=== PATIENT | male | born 1945 | race Caucasian/White ===

== ENCOUNTER 2020-10-30 21:24 | Inpatient (IN) | payer OTHER, MEDICARE, SELFPAY ==
[2020-10-30 21:25] VITALS: BP 106/41; PULSE 57; RESP 18; TEMP 35.8; O2SAT 98; BMI 34.7
--- NOTE | 2020-10-30 21:40 | EKG12_ITS ---
Test Reason : WEAKNESS Blood Pressure : / mmHG Vent. Rate : 055 BPM Atrial Rate : 055 BPM P-R Int : 154 ms QRS Dur : 152 ms QT Int : 512 ms P-R-T Axes : 000 -59 048 degrees QTc Int : 489 ms Sinus bradycardia vs ectopic atrial rhythm Right bundle branch block Left anterior fascicular block Bifascicular block Septal infarct , age undetermined , cannot be excluded Abnormal ECG Confirmed by HAYLEY CHIN, SHERRY ([id number]), loan expeditor THAI CROWE ([id number]) on 10/31/2020 12:56:18 PM Referred By: DEYA Confirmed By:SHERRY HARDY MD
--- NOTE | 2020-10-30 21:40 | CT_ITS ---
STUDY: CT BRAIN WITHOUT CONTRAST REASON FOR EXAM: Male, 75 years old. ams RADIATION DOSAGE (If Supplied By Facility): CTDIvol = ( 44.99 ) mGy, DLP = ( 829.85 ) mGycm TECHNIQUE: Transaxial CT imaging of the brain was performed without administration of intravenous contrast material. Individualized dose optimization techniques were used for this CT. COMPARISON: No relevant priors. FINDINGS: Normal soft tissue structures. Smooth rounded defect of the left parietal bone consistent with gerri hole. This is fat filled with no soft tissue mass. There is mild cerebral atrophy with widening of the extra-axial spaces and ventricular dilatation. There are areas of decreased attenuation within the white matter tracts of the supratentorial brain, consistent with microvascular disease changes. Normal basal ganglia and thalami. Normal brainstem. Normal cerebellum. There is no intracranial hemorrhage. There are no findings of an acute ischemic infarction. Normal visualized paranasal sinuses. CT/Brain/Head without Contrast IMPRESSION: No acute intracranial findings. Negative for hemorrhage, hematoma or extra-axial fluid collection. Negative for demarcation of a new nonhemorrhagic infarct zone. Negative for mass density. 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 Electronically Signed: Kaylin Farrell MD at 22:15 EDT , Service support ,
[2020-10-30 21:50] LABS: Absolute Lymphocyte Count 0.56 X10^3/uL (0.83-4.51); Absolute Neutrophil Count 6.1 X10^3/uL (2.0-7.7); Basophil# 0.03 X10^3/uL; Basophil% 0.4 % (0-1); Eosinophil# 0.09 X10^3/uL; Eosinophils% 1.2 % (0-5); Hematocrit 40.7 % (40-54); Hemoglobin 13.4 g/dL (13.0-16.5); Lymphocyte # 0.56 X10^3/ul (4.0); Lymphocyte % 7.2 % (19-41); Mean Corp Hgb Conc 32.9 g/dL (32-36); Mean Corpuscular Hgb 31.5 pg (27.0-32.0); Mean Corpuscular Volume 95.8 fL (80-94); Mean Platelet Vol. 10.5 fl (6.2-12.0); Monocyte# 0.93 X10^3/uL; Monocyte% 11.9 % (0-10); NRBC Flagged by Analyzer 0 % (0-5); Neutrophil # 6.12 X10^3/uL (2.7-7.7); Neutrophil % 78.4 % (47-70); POSITIVE DIFFERENTIAL YES; Platelet Count 168 K/mm3 (150-450); RBC Distribution Width SD 55.7 fl (35.1-43.9); Red Blood Count 4.25 M/mm3 (4.6-6.2); White Blood Count 7.8 K/mm3 (4.4-11.0)
[2020-10-30 21:51] LABS: Differential Indicated SCAN CRITERIA MET
[2020-10-30 22:00] LABS: International Normalized Ratio 1.3; Prothrombin Time (Protime)PT. 15.4 SECONDS (11.7-14.9)
--- NOTE | 2020-10-30 22:00 | RAD_ITS ---
STUDY: X-RAY CHEST REASON FOR EXAM: Male, 75 years old. ams TECHNIQUE: 1 view COMPARISON: None. FINDINGS: The lungs are clear and expanded. There is no demonstrated pleural abnormality. Normal size heart. Normal mediastinum and justus. Normal visualized pulmonary arteries. There is atherosclerotic calcification of the aortic arch . There are diffuse degenerative changes of the visualized thoracic spine. Normal visualized ribs, clavicles, and shoulders. There is no demonstrated abnormality of the visualized soft tissue structures of the upper abdomen. RAD/Chest 1 View (Portable) IMPRESSION: No acute cardiopulmonary findings. Negative for consolidation, atelectasis or other infiltrates. Normal cardiac size without pulmonary venous congestion or pleural effusion. Moderate atherosclerotic changes of the aorta. Electronically Signed: Kaylin Farrell MD at 22:16 EDT , Service support ,
[2020-10-30 22:01] LABS: Partial Thromboplast Time 29.8 Seconds (24.1-36.2)
[2020-10-30 22:10] LABS: Alcohol, Blood (Medical)-Serum < 3.0 mg/dL
[2020-10-30 22:17] LABS: ALB/GLOB Ratio 0.6 RATIO (0.9-2.4); AST(SGOT) 110 U/L (15-37); Alanine Aminotransfer ALT/SGPT 17 U/L (16-61); Albumin, Serum 2.6 g/dL (3.2-5.0); Alkaline Phosphatase 320 U/L (45-117); Anion Gap 10 (5-15); BUN 51 mg/dL (7-18); BUN/Creat Ratio 19.8 RATIO (10-20); Calcium,Total 9.6 mg/dL (8.5-10.1); Chloride 99 mmol/L (98-107); Creatinine, Serum 2.58 mg/dL (0.70-1.30); EST Glomerular Filtration Rate 26 mL/min (>60); Est Glom Filt Rate - Afr Amer 32 mL/min (>60); Estimated Creatinine Clearance 26.33 ml/min; Globulin 4.6 g/dL (2.2-4.2); Glucose 124 mg/dL (74-106); Potassium 4.2 mmol/L (3.5-5.1); Protein, Total 7.2 g/dL (6.4-8.2); Sodium Level 133 mmol/L (136-145)
[2020-10-30 22:22] LABS: Color, Urine Yellow (Yellow); Glucose, Dipstick Normal (Normal); Ketone-Dipstick Negative (Negative); Leukocyte Esterase-Dipstick Negative /ul (Negative); Nitrite-Dipstick Negative (Negative); Occult Blood-Urine Negative /ul (Negative); Protein-Dipstick Negative (Negative); Specific Gravity, Urine 1.015 (1.002-1.030); Urine Bilirubin Dipstick 1 mg/dL (Negative); Urine Clarity Clear (Clear); Urine Urobilinogen 4 mg/dl (Normal)
[2020-10-30 22:41] LABS: Differential Comment SCANNED
--- NOTE | 2020-10-30 22:52 | ED.DCSUM_ITS ---
- ER Visit Summary Date of Service: 10/30/20 Chief Complaint: Weakness History of Present Illness: The patient is a 75 M with a history of liver cancer, chemotherapy beads, ascites, paracentesis. He had outpatient labs recently that showed abnormal kidney function and elevated ammonia. He was asked to hold his water pills and start lactulose. He is currently using a walker at home and is expected to have a wheelchair and Rollator delivered tomorrow. He is having increasing trouble walking and he is falling frequently. He has not had any injuries. Physical Examination: Afebrile and vital signs unremarkable. Alert to person and place. No acute distress. Scleral icterus and jaundice noted. Heart regular rhythm. Lungs clear. Abdomen is distended with fluid wave. No guarding or rebound. Lower extremities slightly pale and mildly cyanotic, but pulses are strong. Bilateral edema noted, symmetric, nontender. Test Results: EKG showed sinus rhythm at a rate of 55 with a right bundle and left anterior fascicular block. Troponin normal. CBC unremarkable. BUN 51, creatinine 2.58. Total bilirubin 4.3, alkaline phosphatase 320, ALT 17, AST 110, INR 1.3, ammonia 80. Alcohol negative. Chest x-ray showed chronic changes, interpreted by the radiologist and myself. CT brain showed no acute process, chronic and postoperative changes noted. Emergency Department Course and Treatment: Patient has liver cancer with cirrhosis and ascites. It sounds like his kidney function is deteriorating. I am concerned for hepatorenal syndrome. He also has an elevated ammonia. These are contributing to his falls. He is unsafe at home. He does not have home health arranged yet. He cannot use his walker. He is requesting transfer to the [place]. We contacted them upon patient arrival to the ED and have not heard back. I was told by nursing that we left a message and they are not calling back. I spoke with the patient and his who would be agreeable to admission here. He was treated with lactulose. Hospitalist was consulted. Spoke with the patient and his about potential placement. It sounds like they would be okay with rehab or a transitional care unit. They had not previously discus sed long-term placement, but I did notify him that it may be appropriate. Treatment Plan: As above Disposition: [facility] admission Impression: Hepatic encephalopathy, acute kidney injury, liver cancer This note was generated with Dragon dictation software. It may contain incorrect words, spelling, and punctuation that were not noted in review of the chart prior to signing ED Disposition - Plan for ED Patient: Referrals: Miguel Ángel Sandoval MD [Primary Care Provider] -
--- NOTE | 2020-10-30 22:59 | PCM.HP.STD ---
Problem List (1) Liver cirrhosis Status: Acute (2) Liver cancer Status: Acute (3) Hepatorenal syndrome Status: Acute History of Present Illness Date of Admission: 10/30/20 Chief Complaint: Multiple falls The patient is a 75 year old M with a significant history of liver cirrhosis; liver cancer; and hyperlipidemia who presents emergency department with multiple falls going on for about the last month. On the day of presentation patient fell. His brother could not help getting up from the floor. Patient has been using a cane to walk but that has not been helpful. Family is seeking that patient gets rehabilitation. Also patient report that patient has been severely confused. On the day of presentation family called their GI nurse practitioner at the [place], Gilda Mendez ([phone] ext [phone]). Reportedly because patient's kidney function had worsened he was told to hold off his diuretics and lactulose was prescribed lactulose via expedited mail. However patient had not received the lactulose on the day of presentation. Of notes patient had a chemo beads placed in his liver in early September 2020. He has periodic paracentesis. Because patient is a patient of the [facility] from [facility]. Reportedly patient is scheduled for an MRI of the liver; and an EGD of the [place]. Past Medical History Medical History: Medical History (This Medical Record has been edited. Action required.) Cirrhosis of liver K74.60 Liver cancer C22.9 Allergies No Known Allergies Allergy (Verified 10/30/20 21:24) Home Medications: Ambulatory Orders Medication Instructions Recorded NK 10/30/20 Surgical History: - - Chemo beads placed in liver Smoking Status: Current some day smoker Tobacco Use: Cigarettes - *Family History Maternal History Items: Dementia Paternal History Items: Heart Disease Review of Systems Constitutional: Reports: Weakness. Denies: Chills, Fever, Weight Change HEENT: Denies: Head Aches, Sinus Congestion, Sinus Drainage Cardiovascular: Denies: Chest Pain, Palpitations Respiratory: Denies: Cough, Shortness of breath at rest, Sputum production Gastrointestinal: Denies: Abdominal Pain, Nausea, Vomiting Genitourinary: Denies: Dysuria Musculoskeletal: Denies: Joint Pain, Joint Tenderness Skin: Denies: Rash, Wounds Neurological: Reports: Confusion, Difficulty swallowing. Denies: Focal weakness, Numbness, Tingling Psychiatric: Denies: Anxiety, Depression, Homicidal Ideations, Suicidal Ideations Hematologic/ Lymphatic: Denies: Easy Bruising, Easy Bleeding VTE Information - Inpt Only VTE Present on Admission: No VTE Mechan Device Prophylaxis: None VTE Pharm Prophylaxis ordered?: Yes Patient Problems: Active and Suspected Problems (This Medical Record has been edited. Action required.) Liver cirrhosis (Acute) Liver cancer (Acute) Hepatorenal syndrome (Acute) - Physical Exam Vitals/I&O's: Vital Signs Temp Pulse Resp BP Pulse Ox 96.5 F L 57 L 18 106/41 L 98 10/30/20 21:25 10/30/20 21:25 10/30/20 21:25 10/30/20 21:25 10/30/20 21:25 Oxygen Delivery Method Room Air Weight: 109.6 kg Body Mass Index (BMI) 34.7 General: Alert, Cooperative, Confused, - - Patient coughing profusely on exams HEENT: Atraumatic, PERRLA, EOMI, Normocephalic Neck: Supple, No JVD, Negative Carotid Bruits Lungs: Clear to auscultation, Normal air movement Cardiovascular: Regular rate, Normal S1, Normal S2, No murmurs Abdomen: Bowel Sounds Present, Soft, Distended, Obese Extremities: No edema, Capillary Refill Less than 3 Seconds Skin: No rashes, No breakdown Musculoskeletal: No Tenderness to Palpation of Joints or Extremities Neurological: Cranial nerves II-XII grossly intact Psych/Mental Status: Flat Affect Laboratory Results 10/30/20 21:30: WBC 7.8, RBC 4.25 L, Hgb 13.4, Hct 40.7, MCV 95.8 H, MCH 31.5, MCHC 32.9, RDW Std Deviation 55.7 H, RDW Coeff of Iram 16.0 H, Plt Count 168, MPV 10.5, Immature Gran % (Auto) 0.900, Neut % (Auto) 78.4 H, Lymph % (Auto) 7.2 L, Luna % (Auto) 11.9 H, Eos % (Auto) 1.2, Baso % (Auto) 0.4, Absolute Neuts (auto) 6.1, Absolute Lymphs (auto) 0.56 L, Nucleated RBC % 0, Differential Comment SCANNED 10/30/20 21:30: PT 15.4 H, INR 1.3, APTT 29.8 10/30/20 21:30: Sodium 133 L, Potassium 4.2, Chloride 99, Carbon Dioxide 24.0, Anion Gap 10, BUN 51 H, Creatinine 2.58 H, Estim Creat Clear Calc 26.33, Est GFR (MDRD) Af Amer 32 L, Est GFR (MDRD) Non-Af 26 L, BUN/Creatinine Ratio 19.8, Glucose 124 H, Calcium 9.6, Total Bilirubin 4.30 H, AST 110 H, ALT 17, Alkaline Phosphatase 320 H, Troponin I < 0.015, Total Protein 7.2, Albumin 2.6 L, Globulin 4.6 H, Albumin/Globulin Ratio 0.6 L 10/30/20 21:30: Ethyl Alcohol < 3.0 10/30/20 21:30: Ammonia 80.0 H 10/30/20 22:15: Urine Color Yellow, Urine Clarity Clear, Urine pH 6.0, Ur Specific [place] 1.015, Urine Protein Negative, Urine Glucose (UA) Normal, Urine Ketones Negative, Urine Occult Blood Negative, Urine Nitrite Negative, Urine Bilirubin 1 H, Urine Urobilinogen 4 H, Ur Leukocyte Esterase Negative Assessment/Plan All Active Problems (This Medical Record has been edited. Action required.) Liver cirrhosis (Acute) Liver cancer (Acute) Hepatorenal syndrome (Acute) The patient is a 75 year old M with a significant history of liver cirrhosis; liver cancer; and hyperlipidemia who presents emergency department with multiple falls going on for about the last month and with altered mental status. Acute hepatic encephalopathy [facility] At the time of examination the [facility] had not [facility]. Lactulose p.o. was ordered at emergency department. However patient was noted to be coughing profusely after attempting to drink lactulose. Will order lactulose rectally. Hepatorenal syndrome Review of emergency department labs showed severe elevated creatinine. No old records on file to compare with. Patient is n.p.o. at this time secondary to dysphagia. Will order albumin and octreotide Unable to order midodrine secondary to n.p.o. status Dysphagia Patient was coughing uncontrollably while drinking lactulose p.o. at the emergency department. His reported history of dysphagia and an appointment for an EGD. We will keep patient n.p.o. in the hospital and will consult speech for further evaluation. Tobacco abuse Smoke about 2-3 sticks of cigarettes per day Counseled. DVT prophylaxis. Subcutaneous heparin ordered. Inpatient E&M: 23687 Init Hosp L3
[2020-10-30] MEDS: Lactulose 20 GM/30 ML UDC PO (23:20)
[2020-10-30 23:23] VITALS: BP 130/78; PULSE 61; RESP 18; TEMP 36.6; O2SAT 97
[2020-10-30 23:52] VITALS: BP 106/77; PULSE 70; RESP 18; O2SAT 92
[2020-10-31] VITALS (10 sets, daily range): BP systolic 96–123; BP diastolic 45–58; PULSE 55–67; RESP 16–20; TEMP 36.4–36.9; O2SAT 90–99; BMI 33.7; BMI 33.8
[2020-10-31] MEDS: Albumin Human 25% (100 mL) 25 GM/100 ML BAG IV ×4 (01:53→18:16)
[2020-10-31] MEDS: Octreotide 0.1 MG/ML ML SC ×4 (02:21→23:18)
[2020-10-31] MEDS: Lactulose 20 GM/30 ML UDC 200 GM RC ×4 (02:29→23:05)
--- NOTE | 2020-10-31 02:36 | US_ITS ---
PROCEDURE: Ultrasound guided paracentesis. DATE OF EXAMINATION: 10/31/2020. INDICATION: Male, 75 years old. Ascites. PHYSICIAN: Tanmay Fisher M.D. TECHNIQUE: The risks, benefits, and alternatives to the procedure were explained to the patient. The specific risks of bleeding, infection, and damage to bowel were detailed and accepted. Witnessed informed consent was obtained. The abdomen was ultrasonographically surveyed. An appropriate pocket of fluid was identified at the right lower quadrant. The skin were cleaned and prepped in the usual sterile fashion. Using ultrasound guidance, the peritoneal cavity was accessed with a 5-English paracentesis needle/catheter system. The trocar was removed. A total of 4500 ml of ramesh-colored fluid were removed from the peritoneal cavity. A 100 mL sample was sent to the laboratory. The catheter was removed and a sterile dressing was applied. The procedure was well tolerated. US/Paracentesis with US IMPRESSION: Ultrasound guided paracentesis. Electronically Signed: Tanmay Fisher MD at 15:31 EDT , Service support ,
[2020-10-31 04:50] LABS: Absolute Lymphocyte Count 0.54 X10^3/uL (0.83-4.51); Absolute Neutrophil Count 5.1 X10^3/uL (2.0-7.7); Basophil# 0.01 X10^3/uL; Basophil% 0.2 % (0-1); Eosinophil# 0.03 X10^3/uL; Eosinophils% 0.5 % (0-5); Hematocrit 36.9 % (40-54); Hemoglobin 11.9 g/dL (13.0-16.5); Lymphocyte # 0.54 X10^3/ul (4.0); Lymphocyte % 8.4 % (19-41); Mean Corp Hgb Conc 32.2 g/dL (32-36); Mean Corpuscular Hgb 31.4 pg (27.0-32.0); Mean Corpuscular Volume 97.4 fL (80-94); Mean Platelet Vol. 9.6 fl (6.2-12.0); Monocyte# 0.73 X10^3/uL; Monocyte% 11.3 % (0-10); NRBC Flagged by Analyzer 0 % (0-5); POSITIVE DIFFERENTIAL YES; Platelet Count 119 K/mm3 (150-450); RBC Distribution Width CV 15.9 % (11.6-14.6); RBC Distribution Width SD 56.8 fl (35.1-43.9); Red Blood Count 3.79 M/mm3 (4.6-6.2); White Blood Count 6.5 K/mm3 (4.4-11.0)
[2020-10-31 04:51] LABS: Differential Indicated SCAN CRITERIA MET
[2020-10-31 05:08] LABS: Differential Comment SCANNED
[2020-10-31 05:11] LABS: ALB/GLOB Ratio 0.7 RATIO (0.9-2.4); AST(SGOT) 93 U/L (15-37); Alanine Aminotransfer ALT/SGPT 13 U/L (16-61); Albumin, Serum 2.7 g/dL (3.2-5.0); Alkaline Phosphatase 280 U/L (45-117); Anion Gap 10 (5-15); BUN 49 mg/dL (7-18); BUN/Creat Ratio 20.6 RATIO (10-20); Calcium,Total 9.4 mg/dL (8.5-10.1); Chloride 101 mmol/L (98-107); Creatinine, Serum 2.38 mg/dL (0.70-1.30); EST Glomerular Filtration Rate 29 mL/min (>60); Est Glom Filt Rate - Afr Amer 35 mL/min (>60); Estimated Creatinine Clearance 28.54 ml/min; Globulin 3.8 g/dL (2.2-4.2); Glucose 107 mg/dL (74-106); Potassium 4.3 mmol/L (3.5-5.1); Protein, Total 6.5 g/dL (6.4-8.2); Sodium Level 136 mmol/L (136-145)
--- NOTE | 2020-10-31 08:47 | CASEMGMT ---
Social Work Note Per landscape designer questions, pt has completed HCPOA and LW, haven't provided copies to [facility] and pt is able to bring in copies. April Workman GREEN END WORKER, FLOATING LABOR GANG SUPERVISOR
--- NOTE | 2020-10-31 11:06 | PN_ITS ---
Patient Problems: Active and Suspected Problems (This Medical Record has been edited. Action required.) Liver cirrhosis (Acute) Liver cancer (Acute) Hepatorenal syndrome (Acute) Subjective: Feels well. Declining lactulose PO and rectally. Has liver CA (HCC) and is undergoing chemotherapy and wishes to continue. Vitals/I&O's: Vital Signs Temp Pulse Resp BP Pulse Ox 36.9 C 62 20 H 100/50 L 90 10/31/20 10:15 10/31/20 10:15 10/31/20 10:15 10/31/20 10:15 10/31/20 10:15 Oxygen Flow Rate (L/min) 2 Oxygen Delivery Method Room Air Weight: 106.7 kg Body Mass Index (BMI) 33.7 Intake and Output for Last 24 Hours 10/29/20 10/30/20 10/31/20 23:59 23:59 23:59 Intake Total 310 / 310 Balance 310 / 310 General: Alert, No apparent distress HEENT: Atraumatic, Normocephalic Oral: Moist Mucosa, No Gingival or Mucosal Lesions/ Ulcerations Neck: No Nodes, Thyroid Normal Size and Texture Lungs: Clear to auscultation, Normal air movement, No rhonchi, No wheeze, No rales Cardiovascular: Regular rate, Regular Rhythm, Normal S1, Normal S2, No murmurs Abdomen: Bowel Sounds Present, Soft, Non Tender, No Hepato-splenomegaly, Distended Extremities: No Calf Tenderness, Edema Skin: No rashes, No breakdown, - - palmar erythema Neurological: - - no asterixis. Psych/Mental Status: Normal Affect, Appropriate Laboratory Results 10/30/20 21:30: WBC 7.8, RBC 4.25 L, Hgb 13.4, Hct 40.7, MCV 95.8 H, MCH 31.5, MCHC 32.9, RDW Std Deviation 55.7 H, RDW Coeff of Iram 16.0 H, Plt Count 168, MPV 10.5, Immature Gran % (Auto) 0.900, Neut % (Auto) 78.4 H, Lymph % (Auto) 7.2 L, [place]oca % (Auto) 11.9 H, Eos % (Auto) 1.2, Baso % (Auto) 0.4, Absolute Neuts (auto) 6.1, Absolute Lymphs (auto) 0.56 L, Nucleated RBC % 0, Differential Comment SCANNED 10/30/20 21:30: PT 15.4 H, INR 1.3, APTT 29.8 10/30/20 21:30: Sodium 133 L, Potassium 4.2, Chloride 99, Carbon Dioxide 24.0, Anion Gap 10, BUN 51 H, Creatinine 2.58 H, Estim Creat Clear Calc 26.33, Est GFR (MDRD) Af Amer 32 L, Est GFR (MDRD) Non-Af 26 L, BUN/Creatinine Ratio 19.8, Glucose 124 H, Calcium 9.6, Total Bilirubin 4.30 H, AST 110 H, ALT 17, Alkaline Phosphatase 320 H, Troponin I < 0.015, Total Protein 7.2, Albumin 2.6 L, Globulin 4.6 H, Albumin/Globulin Ratio 0.6 L 10/30/20 21:30: Ethyl Alcohol < 3.0 10/30/20 21:30: Ammonia 80.0 H 10/30/20 22:15: Urine Color Yellow, Urine Clarity Clear, Urine pH 6.0, Ur Specific [place] 1.015, Urine Protein Negative, Urine Glucose (UA) Normal, Urine Ketones Negative, Urine Occult Blood Negative, Urine Nitrite Negative, Urine Bilirubin 1 H, Urine Urobilinogen 4 H, Ur Leukocyte Esterase Negative 10/31/20 04:45: WBC 6.5, RBC 3.79 L, Hgb 11.9 L, Hct 36.9 L, MCV 97.4 H, MCH 31.4, MCHC 32.2, RDW Std Deviation 56.8 H, RDW Coeff of Iram 15.9 H, Plt Count 119 L, MPV 9.6, Immature Gran % (Auto) 0.600, Neut % (Auto) 79.0 H, Lymph % (Auto) 8.4 L, Moca % (Auto) 11.3 H, Eos % (Auto) 0.5, Baso % (Auto) 0.2, A bsolute Neuts (auto) 5.1, Absolute Lymphs (auto) 0.54 L, Nucleated RBC % 0, Differential Comment SCANNED 10/31/20 04:45: Sodium 136, Potassium 4.3, Chloride 101, Carbon Dioxide 25.0, Anion Gap 10, BUN 49 H, Creatinine 2.38 H, Estim Creat Clear Calc 28.54, Est GFR (MDRD) Af Amer 35 L, Est GFR (MDRD) Non-Af 29 L, BUN/Creatinine Ratio 20.6 H, Glucose 107 H, Calcium 9.4, Total Bilirubin 4.30 H, AST 93 H, ALT 13 L, Alkaline Phosphatase 280 H, Total Protein 6.5, Albumin 2.7 L, Globulin 3.8, Albumin/Globulin Ratio 0.7 L 10/31/20 04:45: Ammonia 64.0 H Current Medications Fluticasone Propionate (Fluticasone 0.05% 1 [place] Nasal.Sry) 1 spray NASAL BID PRN PRN PRN Reason: breathing Albumin Human () 25 gm in 100 mls @ 60 mls/hr IV Q6 [facility] Stop: 11/02/20 00:07 Last Infusion: 10/31/20 08:47 Dose: Infused Documented by: Pantoprazole Sodium 40 mg/ (Sodium Chloride) 110 mls @ 330 mls/hr IV Q24 [facility] Last Infusion: 10/31/20 04:15 Dose: Infused Documented by: Lactulose (Lactulose 20 Gm/30 Ml Udc) 200 gm RC Q6H [facility] Last Admin: 10/31/20 09:50 Dose: 200 gm Documented by: Octreotide Acetate (Octreotide 0.1 Mg/Ml Ml) 0.1 mg SC TID [facility] Last Admin: 10/31/20 07:45 Dose: 0.1 mg Documented by: Ondansetron HCl (Ondansetron 4 Mg/2 Ml Vial) 4 mg IV Q8H PRN PRN PRN Reason: NAUSEA/VOMITING Sodium Chloride (0.9% Saline Lock 10 Ml Syringe) 10 - 40 ml IV UD PRN PRN Reason: SALINE FLUSH STROKE Vital Signs/Narrative: Vital Signs Temp Pulse Resp BP Pulse Ox 10/31/20 10:15 36.9 C 62 20 H 100/50 L 90 10/31/20 08:36 95 Medical Necessity - Tobacco Use Smoking Status: Current some day smoker Tobacco Use: Cigarettes Assessment/Plan All Active Problems (This Medical Record has been edited. Action required.) Liver cirrhosis (Acute) Liver cancer (Acute) Hepatorenal syndrome (Acute) 1. hepatic encephalopathy improved hold potentiating medications: gabapentin, sertraline did receive a 1x dose of lactulose declining further lactulose give the diarrhea it causes I discussed with about the indication of lactulose in cirrhosis and hepatic encephalopathy, but also the dichotomy of his a-la-carte approach to his care: He wants chemotherapy, but no lactulose for hepatic encephalopathy. I acknowledged the cumbersome aspect of lactulose but it is meant to keep his ammonia down. If he does not take it, he will become confused. I told him he does not have to continue medical care and we can proceed with hospice. He is not interested in that at this time and will take the lactulose 2. Cirrhosis MELD 23, 3 month mortality 19.6% Child-Ocampo C, 1 year survival 45%, 2 year survival 35% follow up with [facility] 3. CKD IV unknown baseline ?hepatorenal syndrome? monitor 4. Ascites 2/2 cirrhosis, no S/S SBP add spironolactone and furosmide as BP allows, will start 50 and 20, respectively, given low normal BP for paracentesis 5. Dysphagia Coughing while taking PO lactulose ST evmilagros currently NPO 6. VTE prophylaxis: SCDs Greater than 35 minutes of which greater than 50% of the time was discussing with the patient about hepatic encephalopathy, lactulose, overall mgmt and hospice. Inpatient E&M: [id number] [facility] Hosp L3
--- NOTE | 2020-10-31 12:15 | CASEMGMT ---
RN CM Assessment: Face to Face with pt for initial transition planning/care coordination assessment. RN CM introduced self and role at [facility], asked patient if this CM could ask a few questions, pt requested this CM to speak to . TC to pt and assessment performed. Care providers, pharmacy, and demographics verified/updated. Admitting Dx: Acute hepatic encephalopathy PCP: Lori Specialists: Gilda LOPEZN, EQUIPMENT OPERAT0R at [place] [id number] Preferred Pharmacy: [facility] Insurance: MMO Medicare, pt has VA benefits Prescription Benefit: yes LNOK: Ana Uribe Living Arrangements: Pt lives with in a ranch home with 2 steps to enter without rail. reports pt needs assistance with all ADL's in the past month. States pt has been falling at home. Transportation: provides transportation. Denies concerns with this. DME/HHC/SNF: Pt has a walker, shower chair at home and the [facility] rollator and w/c today. Pt has not previously had HHC or SNF stay. Pt states this is in process with the [facility], but it takes time. states she prefers that pt [facility] as [facility] and specialists [facility]. reports she cannot manage pt at home as his functional level. She states she prefers he have s/t therapy in a facility prior to coming home. This RN CM received a tc from Kaylin from the trf center and states if pt is going to be dc'd within the next few days, then pt would most likely not trf. Made the aware of this and that this CM will speak with for anticipated los. Pt states no further concerns/needs. CM to follow. Advised to ask CM if any further question/concerns/needs arise, voices understanding. 's Goal: [facility] to [facility] and s/t rehab Plan: TBD. 1237- TC to Dr. Barnes, states it is possible for pt to be dc'd in the next few days. Notified Lauro also of possible plans. 1240- TC to Kaylin at [place] to make aware of the above request from . She states to fax clinicals and she will present to the panel. She states this should not take very long. 1251- Faxed clinicals at this time.
[2020-10-31] MEDS: Furosemide 20 MG Tablet PO (12:34)
[2020-10-31] MEDS: Spironolactone 50 MG Tablet PO (12:34)
[2020-10-31] MEDS: 0.9% Saline Lock 10 ML Syringe IV ×2 (13:27→23:07)
--- NOTE | 2020-10-31 14:32 | CASEMGMT ---
Addendum entered by April Workman 10/31/20 14:42: WILLIAM received message from Jonathan Garay stating pt is 50% service connected, [place] will not [place] for SNF. Jonathan states that she read that [place] was checking with pt's about pt transferring to [facility]. If pt remains at [facility] and pt goes to SNF, pt will need to go to SNF under [facility] as [place] will not cover SNF as pt is only 50% service connected. Original Note: Social Work Note SW following for possible SNF placement. SW placed a call to WILLIAM Garay at [place] and left message asking if pt is service connected. SW waiting for call back. April Workman COMMUNICATIONS ADMINISTRATOR, TOY PACKER
--- NOTE | 2020-10-31 15:00 | CASEMGMT ---
Received tc from [facility] at [facility] who states [facility]. TC to pt to make aware and to explain the [facility] Declination Form. verbalizes understanding and agrees to form. Marisela THOMAS witnessed 's verbal signature as well.
--- NOTE | 2020-10-31 15:16 | CASEMGMT ---
Social Work Note [facility] states pt can remain at [facility]. [facility], pt can admit to SNF under [employer]. WILLIAM placed a call to pt's Ana and verbally provided a list of SNF providers including quality and resource use data and consistent with the patient?s preferred geographic region, medical needs, and insurance network. Ana thought she figured [facility] was in network. WILLIAM informed Ana that [facility] didn't come up on [employer] website but this worker could call [facility] to confirm. Ana states she would like this worker to call [facility]. WILLIAM placed a call to Trina at [facility]. Trina states she is pretty sure they take pt's insurance. WILLIAM faxed referral. Plan: SNF pending acceptance and pre-cert April Workman TELEVISION PARTS TESTER, DISPENSING OPTICIAN
--- NOTE | 2020-10-31 15:43 | NURSING ---
LACTULOSE ENEMA GIVEN. PT ABLE TO HOLD APPROX 400ML.
--- NOTE | 2020-10-31 15:49 | NURSING ---
LATE ENTRY - [id number] - LACTULOSE ENEMA GIVEN. PT ABLE TO HOLD APPROX 400ML.
[2020-10-31 15:54] LABS: Body Fluid Mononuclear WBC # 0.156 10^3/uL; Body Fluid Polynuclear WBC # 0.039 10^3/uL; Body Fluid Total Cells Counted 0.227 10^3/ul; White Blood Count/Body Fluid 0.195 10^3/uL
[2020-10-31 16:33] LABS: Appearance/Body Fluid SL CLDY; Auto B Fluid Analyzer BKGD Ct COUNTS W/IN LIMITS (W/IN LIMITS); Color/Body Fluid YELLOW; Red Cell Count/Body Fluid 136 /mm3; Source- Body Fluid PERITONEAL FLUID
--- NOTE | 2020-10-31 16:50 | CASEMGMT ---
Social Work Note WILLIAM received call from Trina stating she is waiting for insurance verification but clinically they can accept pt. WILLIAM informed Trina that this worker will submit initial clinicals to [employer]. WILLIAM informed Trina that [employer] had emailed [facility] and stated that this weekend they are starting to work on the weekends. Trina states that if [employer] gives initial approval for SNF then to have Alaina BERMUDEZ (WILLIAM on Tuesday) to call Trina on her cell and she will submit for pre-cert. Pt's Ana present at [facility]. SW in to speak with pt and Ana. Pt soundly sleeping. WILLIAM updated Ana that [facility] is able to accept pt pending pre-cert. Aan asked again about pt being transferred to [facility]. WILLIAM informed Ana that this worker will get RN CM to speak with her regarding transfer to [facility]. Plan: [facility] pending pre-cert April Workman ASSEMBLER BICYCLE, PRESIDENT [employer]
--- NOTE | 2020-10-31 16:54 | CASEMGMT ---
Pt present in pt room requesting to speak with CM. Met with and explained response from Ed Jarvis. She is agreeable to have pt stay at [facility] with plans to go to [facility] pending precert. Will update [facility] on Tuesday if pt still admitted. She denied further questions or needs.
--- NOTE | 2020-10-31 17:25 | CASEMGMT ---
Social Work Note WILLIAM received message from Trina at [facility] that they are actually out of network with pt's insurance. Trina states that they can try one time contract with [employer]. Trina asked again to be called this weekend if [employer] gives initial approval to Alaina BERMUDEZ and then she can try for One Time Contract with [employer]. WILLIAM faxed COVID test and COVID tool to [facility] and placed on pt's chart. WILLIAM completed convalescent 7000 in HENS. WILLIAM placed HENS and transportation forms on pt's chart. Plan: [facility] pending [employer] approval and One Time Contract April Workman ONLINE MARKETING COORDINATOR, SENIOR LEAD JAVA DEVELOPER
[2020-10-31 18:14] LABS: Lymphocytes 12 %; Macrophages 32 %; Mesothelial Cells 27 %; Monocytes 13 %; Neutrophil (Segs) 16 %
[2020-10-31 18:20] LABS: Body Fluid QC Type(s) BF6Q
[2020-11-01] VITALS (8 sets, daily range): BP systolic 94–109; BP diastolic 48–60; PULSE 52–56; RESP 16–20; TEMP 36.3–37.2; O2SAT 92–98
[2020-11-01] MEDS: Albumin Human 25% (100 mL) 25 GM/100 ML BAG IV ×4 (01:07→17:21)
[2020-11-01] MEDS: Lactulose 20 GM/30 ML UDC 200 GM RC ×2 (03:21→07:35)
[2020-11-01] MEDS: 0.9% Saline Lock 10 ML Syringe IV ×3 (03:31→10:18)
[2020-11-01] MEDS: Octreotide 0.1 MG/ML ML SC ×3 (06:18→22:00)
[2020-11-01 06:38] LABS: Absolute Lymphocyte Count 0.51 X10^3/uL (0.83-4.51); Absolute Neutrophil Count 4.9 X10^3/uL (2.0-7.7); Basophil# 0.02 X10^3/uL; Basophil% 0.3 % (0-1); Eosinophil# 0.12 X10^3/uL; Hematocrit 34.8 % (40-54); Hemoglobin 11.1 g/dL (13.0-16.5); Lymphocyte # 0.51 X10^3/ul (4.0); Lymphocyte % 8.3 % (19-41); Mean Corp Hgb Conc 31.9 g/dL (32-36); Mean Corpuscular Hgb 31.4 pg (27.0-32.0); Mean Corpuscular Volume 98.6 fL (80-94); Mean Platelet Vol. 10.7 fl (6.2-12.0); Monocyte# 0.57 X10^3/uL; Monocyte% 9.3 % (0-10); NRBC Flagged by Analyzer 0 % (0-5); Neutrophil # 4.88 X10^3/uL (2.7-7.7); Neutrophil % 79.6 % (47-70); POSITIVE COUNT YES; POSITIVE DIFFERENTIAL YES; Platelet Count 79 K/mm3 (150-450); RBC Distribution Width CV 16.2 % (11.6-14.6); RBC Distribution Width SD 57.5 fl (35.1-43.9); Red Blood Count 3.53 M/mm3 (4.6-6.2); White Blood Count 6.1 K/mm3 (4.4-11.0)
[2020-11-01 06:45] LABS: Differential Indicated SCAN CRITERIA MET
[2020-11-01 07:02] LABS: Differential Comment SCANNED; Platelet Estimate SLT DEC (ADEQ)
[2020-11-01 07:05] LABS: ALB/GLOB Ratio 1.1 RATIO (0.9-2.4); AST(SGOT) 67 U/L (15-37); Alanine Aminotransfer ALT/SGPT 11 U/L (16-61); Albumin, Serum 3.3 g/dL (3.2-5.0); Alkaline Phosphatase 200 U/L (45-117); Anion Gap 9 (5-15); BUN 52 mg/dL (7-18); BUN/Creat Ratio 21.8 RATIO (10-20); Calcium,Total 9.5 mg/dL (8.5-10.1); Chloride 106 mmol/L (98-107); Creatinine, Serum 2.39 mg/dL (0.70-1.30); EST Glomerular Filtration Rate 28 mL/min (>60); Est Glom Filt Rate - Afr Amer 34 mL/min (>60); Estimated Creatinine Clearance 28.42 ml/min; Globulin 2.9 g/dL (2.2-4.2); Glucose 111 mg/dL (74-106); Protein, Total 6.2 g/dL (6.4-8.2); Sodium Level 140 mmol/L (136-145)
[2020-11-01] MEDS: Furosemide 20 MG Tablet PO (10:18)
[2020-11-01] MEDS: Spironolactone 50 MG Tablet PO (10:18)
--- NOTE | 2020-11-01 12:16 | PCM.PN.HOSP ---
Patient Problems: Active and Suspected Problems (This Medical Record has been edited. Action required.) Liver cirrhosis (Acute) Liver cancer (Acute) Hepatorenal syndrome (Acute) Subjective: Wants ice chips. Vitals/I&O's: Vital Signs Temp Pulse Resp BP Pulse Ox 37.2 C 52 L 20 H 94/52 L 98 11/01/20 09:01 11/01/20 09:01 11/01/20 09:04 11/01/20 09:01 11/01/20 09:01 Oxygen Flow Rate (L/min) 2 Oxygen Delivery Method [4] Room Air Oxygen Delivery Method [3] Room Air Oxygen Delivery Method [2] Room Air Oxygen Delivery Method [1 ( Room Air Initial Baseline)] Oxygen Delivery Method Room Air Weight: 106.7 kg Body Mass Index (BMI) 33.7 Intake and Output for Last 24 Hours 10/30/20 10/31/20 11/01/20 23:59 23:59 23:59 Intake Total 510 / 510 310 / 310 Output Total 4500 / 4500 Balance -3990 / -3990 310 / 310 General: Confused - pleasant, - - afebrile HEENT: Atraumatic, Normocephalic Oral: Moist Mucosa, No Gingival or Mucosal Lesions/ Ulcerations Neck: No Nodes, Thyroid Normal Size and Texture Lungs: Clear to auscultation, Normal air movement, No rhonchi, No wheeze, No rales Cardiovascular: Regular rate, Regular Rhythm, Normal S1, Normal S2 Abdomen: Bowel Sounds Present, Soft, Non Tender, Non-Distended, No Hepato-splenomegaly Extremities: No Calf Tenderness, Edema Skin: No rashes, No breakdown Psych/Mental Status: Normal Affect Microbiology Past 72 Hours 10/31/20 16:15 Mucosa - Nose SARS-CoV-2 Antigen (Rapid) - Final Laboratory Results 10/31/20 14:45: Fluid Source PERITONEAL FLUID, Fluid Color YELLOW, Fluid Appearance SL CLDY, Fluid WBC 0.195, Fluid RBC 136, Fluid Tot Cell Count 0.227, Fld Polynuclear WBCs # 0.039, Fld Polynuclear WBCs % 20.0, Fluid Mononuclear WBCs 0.156, Fld Mononuclear WBCs % 80.0, Fluid Neutrophils 16, Fluid Lymphocytes 12, Fluid Monocytes 13, Fluid Macrophages 32, Fld Mesothelial Cells 27, Fl Pathologist Comment May follow, Fluid Comment 2 SEE COMMENT 11/01/20 06:20: WBC 6.1, RBC 3.53 L, Hgb 11.1 L, Hct 34.8 L, MCV 98.6 H, MCH 31.4, MCHC 31.9 L, RDW Std Deviation 57.5 H, RDW Coeff of Iram 16.2 H, Plt Count 79 L, MPV 10.7, Immature Gran % (Auto) 0.500, Neut % (Auto) 79.6 H, Lymph % (Auto) 8.3 L, Mcclain % (Auto) 9.3, Eos % (Auto) 2.0, Baso % (Auto) 0.3, Absolute Neuts (auto) 4.9, Absolute Lymphs (auto) 0.51 L, Nucleated RBC % 0, Differential Comment SCANNED, Platelet Estimate SLT 11/01/20 06:20: Sodium 140, Potassium 4.0, Chloride 106, Carbon Dioxide 25.0, Anion Gap 9, BUN 52 H, Creatinine 2.39 H, Estim Creat Clear Calc 28.42, Est GFR (MDRD) Af Amer 34 L, Est GFR (MDRD) Non-Af 28 L, BUN/Creatinine Ratio 21.8 H, Glucose 111 H, Calcium 9.5, Total Bilirubin 6.00 H, AST 67 H, ALT 11 L, Alkaline Phosphatase 200 H, Total Protein 6.2 L, Albumin 3.3, Globulin 2.9, Albumin/Globulin Ratio 1.1 Current Medications Fluticasone Propionate (Fluticasone 0.05% 1 [place] Nasal.Sry) 1 spray NASAL BID PRN PRN PRN Reason: breathing Furosemide (Furosemide 20 Mg Tablet) 20 mg PO DAILY [facility] Last Admin: 11/01/20 10:18 Dose: 20 mg Documented by: Albumin Human () 25 gm in 100 mls @ 60 mls/hr IV Q6 [facility] Stop: 11/02/20 00:07 Last Admin: 11/01/20 12:14 Dose: 60 mls/hr Documented by: Lactulose (Lactulose 20 Gm/30 Ml Udc) 20 gm PO TID [facility] Non-Formulary Medication (Omeprazole) 40 mg PO DAILY [facility] Octreotide Acetate (Octreotide 0.1 Mg/Ml Ml) 0.1 mg SC TID [facility] Last Admin: 11/01/20 06:18 Dose: 0.1 mg Documented by: Ondansetron HCl (Ondansetron 4 Mg/2 Ml Vial) 4 mg IV Q8H PRN PRN PRN Reason: NAUSEA/VOMITING Propranolol HCl (Propranolol 40 Mg Tablet) 40 mg PO BID [facility] Sodium Chloride (0.9% Saline Lock 10 Ml Syringe) 10 - 40 ml IV UD PRN PRN Reason: SALINE FLUSH Last Admin: 11/01/20 10:18 Dose: 10 ml Documented by: Spironolactone (Spironolactone 50 Mg Tablet) 50 mg PO DAILY [facility] Last Admin: 11/01/20 10:18 Dose: 50 mg Documented by: STROKE Vital Signs/Narrative: Vital Signs Temp Pulse Resp BP Pulse Ox 11/01/20 09:04 20 H 11/01/20 09:01 37.2 C 52 L 20 H 94/52 L 98 Medical Necessity - Tobacco Use Smoking Status: Current some day smoker Tobacco Use: Cigarettes Assessment/Plan All Active Problems (This Medical Record has been edited. Action required.) Liver cirrhosis (Acute) Liver cancer (Acute) Hepatorenal syndrome (Acute) 1. hepatic encephalopathy improved hold potentiating medications: gabapentin, sertraline did receive a 1x dose of lactulose 4/2: declining further lactulose give the diarrhea it causes. I discussed with about the indication of lactulose in cirrhosis and hepatic encephalopathy, but also the dichotomy of his a-la-carte approach to his care: He wants chemotherapy, but no lactulose for hepatic encephalopathy. I acknowledged the cumbersome aspect of lactulose but it is meant to keep his ammonia down. If he does not take it, he will become confused. I told him he does not have to continue medical care and we can proceed with hospice. He is not interested in that at this time and will take the lactulose 3: change lactulose to PO and monitor 2. 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 CKD IV stable unknown baseline ?hepatorenal syndrome? monitor 4. Ascites 2/2 cirrhosis, no S/S SBP add spironolactone and furosmide as BP allows, will start 50 and 20, respectively, given low normal BP for paracentesis 5. Dysphagia Coughing while taking PO lactulose ST eval 4/: cleared for diet 6. VTE prophylaxis: SCDs 7. Disposition: Pending placement at SNF [facility] declined [facility]. Inpatient E&M: [id number] Subs Hosp L2
[2020-11-01] MEDS: Lactulose 20 GM/30 ML UDC PO ×2 (13:43→22:00)
[2020-11-02] VITALS (8 sets, daily range): BP systolic 109–127; BP diastolic 58–69; PULSE 50–64; RESP 16–18; TEMP 36.6–37.1; O2SAT 94–97
[2020-11-02] MEDS: Albumin Human 25% (100 mL) 25 GM/100 ML BAG IV (00:02)
[2020-11-02] MEDS: Octreotide 0.1 MG/ML ML SC ×3 (05:08→21:23)
[2020-11-02] MEDS: Lactulose 20 GM/30 ML UDC PO ×3 (05:09→21:23)
[2020-11-02 08:46] LABS: Anion Gap 8 (5-15); BUN 46 mg/dL (7-18); BUN/Creat Ratio 21.4 RATIO (10-20); Calcium,Total 9.7 mg/dL (8.5-10.1); Chloride 106 mmol/L (98-107); Creatinine, Serum 2.15 mg/dL (0.70-1.30); EST Glomerular Filtration Rate 32 mL/min (>60); Est Glom Filt Rate - Afr Amer 39 mL/min (>60); Glucose 131 mg/dL (74-106); Potassium 3.7 mmol/L (3.5-5.1); Sodium Level 140 mmol/L (136-145)
[2020-11-02] MEDS: Pantoprazole Sodium 40 MG Tablet PO (09:42)
[2020-11-02] MEDS: Furosemide 20 MG Tablet PO (09:42)
[2020-11-02] MEDS: Propranolol 40 MG Tablet PO (09:42)
[2020-11-02] MEDS: Spironolactone 50 MG Tablet PO (09:42)
--- NOTE | 2020-11-02 11:29 | PCM.PN.HOSP ---
Patient Problems: Active and Suspected Problems (This Medical Record has been edited. Action required.) Liver cirrhosis (Acute) Liver cancer (Acute) Hepatorenal syndrome (Acute) Subjective: Feels well. Denies complaints. Vitals/I&O's: Vital Signs Temp Pulse Resp BP Pulse Ox 36.6 C 52 L 16 109/63 95 11/02/20 09:36 11/02/20 09:36 11/02/20 09:36 11/02/20 09:36 11/02/20 09:36 Oxygen Flow Rate (L/min) 2 Oxygen Delivery Method [4] Room Air Oxygen Delivery Method [3] Room Air Oxygen Delivery Method [2] Room Air Oxygen Delivery Method [1 ( Room Air Initial Baseline)] Oxygen Delivery Method Room Air Weight: 106.7 kg Body Mass Index (BMI) 33.7 Intake and Output for Last 24 Hours 10/31/20 11/01/20 11/02/20 23:59 23:59 23:59 Intake Total 510 / 510 910 / 1030 220 / 220 Output Total 4500 / 4500 1000 / 1000 Balance -3990 / -3990 -90 / 30 220 / 220 General: Alert, No apparent distress HEENT: Atraumatic, Normocephalic Oral: Moist Mucosa, No Gingival or Mucosal Lesions/ Ulcerations Neck: No Nodes, Thyroid Normal Size and Texture Lungs: Clear to auscultation, Normal air movement, No rhonchi, No wheeze, No rales Cardiovascular: Regular rate, Regular Rhythm, Normal S1, Normal S2, No murmurs Abdomen: Bowel Sounds Present, Soft, Non Tender, Distended Extremities: No Calf Tenderness, Edema Psych/Mental Status: Normal Affect, Appropriate Microbiology Past 72 Hours 10/31/20 16:15 Mucosa - Nose SARS-CoV-2 Antigen (Rapid) - Final Laboratory Results 11/02/20 07:40: Sodium 140, Potassium 3.7, Chloride 106, Carbon Dioxide 26.0, Anion Gap 8, BUN 46 H, Creatinine 2.15 H, Estim Creat Clear Calc 31.60, Est GFR (MDRD) Af Amer 39 L, Est GFR (MDRD) Non-Af 32 L, BUN/Creatinine Ratio 21.4 H, Glucose 131 H, Calcium 9.7 Current Medications Fluticasone Propionate (Fluticasone 0.05% 1 [place] Nasal.Sry) 1 spray NASAL BID PRN PRN PRN Reason: breathing Furosemide (Furosemide 20 Mg Tablet) 20 mg PO DAILY [facility] Last Admin: 11/02/20 09:42 Dose: 20 mg Documented by: Lactulose (Lactulose 20 Gm/30 Ml Udc) 20 gm PO TID [facility] Last Admin: 11/02/20 05:09 Dose: 20 gm Documented by: Nicotine (Nicotine 7 Mg Patch) 7 mg TD DAILY [facility] Last Admin: 11/02/20 09:43 Dose: 7 mg Documented by: Octreotide Acetate (Octreotide 0.1 Mg/Ml Ml) 0.1 mg SC TID [facility] Last Admin: 11/02/20 05:08 Dose: 0.1 mg Documented by: Ondansetron HCl (Ondansetron 4 Mg/2 Ml Vial) 4 mg IV Q8H PRN PRN PRN Reason: NAUSEA/VOMITING Pantoprazole Sodium (Pantoprazole Sodium 40 Mg Tablet) 40 mg PO DAILY [facility] Last Admin: 11/02/20 09:42 Dose: 40 mg Documented by: Propranolol HCl (Propranolol 40 Mg Tablet) 40 mg PO BID [facility] Last Admin: 11/02/20 09:42 Dose: 40 mg Documented by: Sodium Chloride (0.9% Saline Lock 10 Ml Syringe) 10 - 40 ml IV UD PRN PRN Reason: SALINE FLUSH Last Admin: 11/01/20 10:18 Dose: 10 ml Documented by: Spironolactone (Spironolactone 50 Mg Tablet) 50 mg PO DAILY [facility] Last Admin: 11/02/20 09:42 Dose: 50 mg Documented by: STROKE Vital Signs/Narrative: Vital Signs Temp Pulse Resp BP Pulse Ox 11/02/20 09:36 36.6 C 52 L 16 109/63 95 11/02/20 08:30 64 Medical Necessity - Tobacco Use Smoking Status: Current some day smoker Tobacco Use: Cigarettes Assessment/Plan All Active Problems (This Medical Record has been edited. Action required.) Liver cirrhosis (Acute) Liver cancer (Acute) Hepatorenal syndrome (Acute) 75 yo male presents with hepatic encephalopathy. Improved with lactulose. Pt has required encouragement to take his lactulose. 1. hepatic encephalopathy improved hold potentiating medications: gabapentin, sertraline 4/2: declining further lactulose give the diarrhea it causes. I discussed with about the indication of lactulose in cirrhosis and hepatic encephalopathy, but also the dichotomy of his a-la-carte approach to his care: He wants chemotherapy, but no lactulose for hepatic encephalopathy. I acknowledged the cumbersome aspect of lactulose but it is meant to keep his ammonia down. If he does not take it, he will become confused. I told him he does not have to continue medical care and we can proceed with hospice. He is not interested in that at this time and will take the lactulose 11/01: change lactulose to PO and monitor 11/02: stable 2. Cirrhosis MELD 23, 3 month mortality 19.6% Child-Ocampo C, 1 year survival 45%, 2 year survival 35% follow up with [place] gastroenterology 3. CKD IV stable unknown baseline ?hepatorenal syndrome? monitor 4. Ascites 2/2 cirrhosis, no S/S SBP add spironolactone and furosemide as BP allows, will start 50 and 20, respectively, given low normal BP s/p paracentesis, which removed 4liters. He did receive albumin afterwards 5. Dysphagia Coughing while taking PO lactulose ST eval 11/01: cleared for diet 6. VTE prophylaxis: SCDs 7. Disposition: Pending placement at SNF. Awaiting approval, hopefully 11/03. [facility] declined transfer. Inpatient E&M: [id number] Subs Hosp L2
--- NOTE | 2020-11-02 12:12 | NURSING ---
Patient with moderate amount of emesis, states he thinks it is from the puree diet. Pt offered zofran but declined. Hygiene provided and linens changed.
[2020-11-03 05:36] VITALS: BP 125/73; PULSE 51; RESP 16; TEMP 36.6; O2SAT 95
[2020-11-03] MEDS: Octreotide 0.1 MG/ML ML SC ×3 (05:39→21:26)
[2020-11-03 07:08] LABS: Anion Gap 9 (5-15); BUN 40 mg/dL (7-18); BUN/Creat Ratio 19.9 RATIO (10-20); Calcium,Total 9.7 mg/dL (8.5-10.1); Chloride 106 mmol/L (98-107); Creatinine, Serum 2.01 mg/dL (0.70-1.30); EST Glomerular Filtration Rate 35 mL/min (>60); Est Glom Filt Rate - Afr Amer 42 mL/min (>60); Glucose 114 mg/dL (74-106); Potassium 3.8 mmol/L (3.5-5.1); Sodium Level 141 mmol/L (136-145)
[2020-11-03 07:35] VITALS: O2SAT 95
[2020-11-03 09:00] VITALS: BP 127/72; PULSE 51; RESP 18; TEMP 36.8; O2SAT 96
--- NOTE | 2020-11-03 09:43 | CASEMGMT ---
Addendum entered by April Workman 11/03/20 10:30: WILLIAM received message from Reta at [employer] ([phone]) stating pt is approved SNF level of care but [facility] is not in network with pt's insurance, pt has no out of network benefits, so pt would be private pay to go to [facility]. Reta is stating pt will need to go to SNF in network with pt's insurance. WILLIAM placed a call to Trina at [facility] and left message to disregard referral as pt's insurance is stating to find a SNF in network with pt's insurance. Per previous conversation with pt's Ana, Ana's next choice for SNF is [facility]. SW reviewed [employer], [facility] is not listed on website. WILLIAM placed a call to [facility] and spoke with Salina. Cr states they are in network with [employer], agreeable to reviewing referral. SW faxed referral to W. Plan: [facility] pending acceptance and pre-cert Original Note: Social Work Note SW had missed call from [employer], but not voicemail. SW placed a call to [employer] and left message regarding pt's referral for SNF. SW waiting for call back. Plan: [facility] pending pre-cert April Workman IRON POURER, MANAGER BUSINESS INFORMATION
[2020-11-03] MEDS: Spironolactone 50 MG Tablet PO (10:48)
[2020-11-03] MEDS: Furosemide 20 MG Tablet PO (10:48)
[2020-11-03] MEDS: Propranolol 40 MG Tablet PO (10:48)
[2020-11-03] MEDS: Pantoprazole Sodium 40 MG Tablet PO (10:48)
--- NOTE | 2020-11-03 11:28 | CASEMGMT ---
Addendum entered by Kathie Guzman 11/03/20 12:50: 1147- TC back from [facility] who states pt is 50% service connected and does not qualify for a VA contracted facility. She states if all options through private insurance had been exhausted, then call back to her. She also gave SW number Heidi: [phone] [id number]. [id number] to pt to make aware of conversations. She states if this is not settled by morning, she will transport pt to [facility] herself or hire someone to do so. Updated Lauro THOMAS on her plan. Original Note: Notified by Lauro THOMAS that pt wishes pt to be [facility]'d to the [facility]. TC to Una at the trf center who this CM spoke with on Tuesday. She is aware that pt is medically stable but waiting for precert from pt insurance to go to SNF and currently would like pt to trf. She states she received a declination form on Tuesday to not trf. Made her aware that since the [facility] wouldn't accept due to pt likelihood of dc'ing within a few days, that pt needed hospital stay to be paid under [employer] MCR so he could go to facility. Una states if pt is medically stable, he will not be trf'd to the [facility]. She will call this CM back.
--- NOTE | 2020-11-03 11:30 | CASEMGMT ---
Social Work Note Pt's Ana requesting to speak to this worker again. WILLIAM in to speak with pt and Ana. Ana states that pt's [facility] RN (Mayte/Rachel) told Ana that she refused to have pt transferred to the [place]. WILLIAM informed Ana that per RN CM who spoke with the [facility], the VA was the ones that refused the transferred because pt was going to be medically ready for discharge soon so that is why Ana had to sign the VA Declaration form for pt's hospital stay to be billed under [employer]. WILLIAM informed Ana that pt is not VA connected enough for the [place] to pay for a SNF under VA benefits so that is why pt will need to go to SNF under [employer]. Ana states that she wants pt transferred to [place]. WILLIAM informed Ana that this worker will have RN CM Reach out to [facility] transfer line. Pt also agreeable to being transferred to [place]. WILLIAM updated RN CM. WILLIAM informed Ana that [facility] is actually not in contract with [facility] and O had informed this worker that pt was approved for SNF but pt needed to admit to SNF that they are contracted with. WILLIAM explained Managed Medicare vs traditional Medicare. WILLIAM informed Ana that this worker had sent referral to [facility] as this was her second choice on Tuesday and Ana confirms, [facility] is second choice. WILLIAM explained that this worker is just waiting to hear back from [facility]. WILLIAM asked Ana what her next choice for SNF is in the event [facility] is not able to accept pt and Ana mentioned the unit at [facility]. WILLIAM informed Ana that [facility] does have a TCU but typically are pretty full and this worker is not sure about bed availability. Ana states she will be at work until 10:00pm at night. WILLIAM informed Ana that this worker will keep her updated on SNF. Ana also mentioned taking pt home at discharge. WILLIAM informed Ana that pt did do well with therapy. Ana states she still has concerns with pt eating. WILLIAM reviewed PT/OT today, Pt walked supervision 140ft. Plan: SNF pending acceptance and pre-cert. April Workman TREE TRIMMER, PET COUNSELOR
[2020-11-03 12:16] LABS: Pathologist Comment/Body Fluid Reviewed
[2020-11-03 14:00] VITALS: BP 103/62; PULSE 52; RESP 14; TEMP 36.6; O2SAT 94
--- NOTE | 2020-11-03 14:55 | CASEMGMT ---
Addendum entered by April Workman 11/03/20 16:09: WILLIAM placed a call to pt's Ana and updated her that this worker is leaving soon for the day and this worker is still waiting to hear from [facility] regarding acceptance. Ana states understanding. WILLIAM did inform Ana that TCU is stating they have no beds available until the end of the week. Plan: [facility] pending acceptance and pre-cert. Original Note: Social Work Note WILLIAM placed a call to Erum at [facility] to inquire about referral. Erum states staff is still reviewing referral and so is the Medical Direction. Erum states she will let this worker know. Per previous conversations with Laura in TCU, TCU has no beds until Tuesday. WILLIAM waiting for call back from [facility]. April Workman TOOL KEEPER, CHAR CONVEYOR TENDER CELLAR
--- NOTE | 2020-11-03 18:18 | PCM.PROGNOTE ---
Patient Problems: Active and Suspected Problems (This Medical Record has been edited. Action required.) Liver cirrhosis (Acute) Liver cancer (Acute) Hepatorenal syndrome (Acute) Subjective: Patient was seen and examined today, patient's was in the room during the time of my examination. Patient's requested the [facility] be [facility], we are awaiting an answer from them concerning whether the patient will be accepted for further care at the OR. - Physical Exam Vitals/I&O's: Vital Signs Temp Pulse Resp BP Pulse Ox 97.8 F 52 L 14 103/62 94 11/03/20 14:00 11/03/20 14:00 11/03/20 14:00 11/03/20 14:00 11/03/20 14:00 Oxygen Flow Rate (L/min) 2 Oxygen Delivery Method [4] Room Air Oxygen Delivery Method [3] Room Air Oxygen Delivery Method [2] Room Air Oxygen Delivery Method [1 ( Room Air Initial Baseline)] Oxygen Delivery Method Room Air Weight: 106.7 kg Body Mass Index (BMI) 33.7 Intake and Output for Last 24 Hours 11/01/20 11/02/20 11/03/20 23:59 23:59 23:59 Intake Total 910 / 1030 420 / 420 Output Total 1000 / 1000 Balance -90 / 30 420 / 420 General: Alert, Oriented x3, Cooperative, No apparent distress, Well developed HEENT: Atraumatic, PERRLA, EOMI, Normocephalic Oral: Moist Mucosa Neck: Supple, No JVD, Trachea Midline, Thyroid Normal Size and Texture Lungs: Clear to auscultation, Normal air movement, No rhonchi, No wheeze Cardiovascular: Regular rate, Regular Rhythm, Normal S1, Normal S2, No murmurs, PMI Normal, No rub noted, No Gallop Abdomen: Bowel Sounds Present, Soft, Non Tender, Distended - And tympanic Extremities: No clubbing, No cyanosis, No edema, Capillary Refill Less than 3 Seconds Skin: No rashes, No breakdown Musculoskeletal: No Tenderness to Palpation of Joints or Extremities Neurological: Cranial nerves II-XII grossly intact, Neuro grossly intact, Sensory exam intact to light touch and pain Psych/Mental Status: Normal Affect, Appropriate, Alert and oriented to time, place, person, mood and affect Microbiology Past 72 Hours 10/31/20 16:15 Mucosa - Nose SARS-CoV-2 Antigen (Rapid) - Final Laboratory Results 10/31/20 14:45: Fl Pathologist Comment Reviewed 11/03/20 06:30: Sodium 141, Potassium 3.8, Chloride 106, Carbon Dioxide 26.0, Anion Gap 9, BUN 40 H, Creatinine 2.01 H, Estim Creat Clear Calc 33.80, Est GFR (MDRD) Af Amer 42 L, Est GFR (MDRD) Non-Af 35 L, BUN/Creatinine Ratio 19.9, Glucose 114 H, Calcium 9.7 Current Medications Fluticasone Propionate (Fluticasone 0.05% 1 [place] Nasal.Sry) 1 spray NASAL BID PRN PRN PRN Reason: breathing Furosemide (Furosemide 20 Mg Tablet) 20 mg PO DAILY [facility] Last Admin: 11/03/20 10:48 Dose: 20 mg Documented by: Lactulose (Lactulose 20 Gm/30 Ml Udc) 20 gm PO TID [facility] Last Admin: 11/03/20 14:13 Dose: Not Given Documented by: Nicotine (Nicotine 7 Mg Patch) 7 mg TD DAILY [facility] Last Admin: 11/03/20 10:49 Dose: 7 mg Documented by: Octreotide Acetate (Octreotide 0.1 Mg/Ml Ml) 0.1 mg SC TID [facility] Last Admin: 11/03/20 14:13 Dose: 0.1 mg Documented by: Ondansetron HCl (Ondansetron 4 Mg/2 Ml Vial) 4 mg IV Q8H PRN PRN PRN Reason: NAUSEA/VOMITING Pantoprazole Sodium (Pantoprazole Sodium 40 Mg Tablet) 40 mg PO DAILY [facility] Last Admin: 11/03/20 10:48 Dose: 40 mg Documented by: Propranolol HCl (Propranolol 40 Mg Tablet) 40 mg PO BID [facility] Last Admin: 11/03/20 10:48 Dose: 40 mg Documented by: Sodium Chloride (0.9% Saline Lock 10 Ml Syringe) 10 - 40 ml IV UD PRN PRN Reason: SALINE FLUSH Last Admin: 11/01/20 10:18 Dose: 10 ml Documented by: Spironolactone (Spironolactone 50 Mg Tablet) 50 mg PO DAILY [facility] Last Admin: 11/03/20 10:48 Dose: 50 mg Documented by: Medical Necessity - Tobacco Use Smoking Status: Current some day smoker Tobacco Use: Cigarettes Assessment/Plan All Active Problems (This Medical Record has been edited. Action required.) Liver cirrhosis (Acute) Liver cancer (Acute) Hepatorenal syndrome (Acute) #1 hepatic encephalopathy-improved, patient is alert and able to respond appropriately to my questions today #2 generalized weakness-secondary to chronic liver disease and liver cancer, continue to have PT and OT work with the patient, speech therapy was seeing the patient today also #3 liver cancer #4 jaundice-secondary to chronic liver disease and liver cancer #5 elevated creatinine-I do not have a baseline creatinine on the patient, continue to monitor labs #6 type 2 diabetes-continue to monitor blood sugars #7 chronic ascites-secondary to cirrhosis and chronic liver cancer #8 cirrhosis-etiology unclear #9 hyperlipidemia Inpatient E&M: [id number] Subs Hosp L2
[2020-11-03 20:23] VITALS: BP 113/61; PULSE 51; RESP 18; TEMP 36.6; O2SAT 98
[2020-11-04 02:21] VITALS: BP 110/46; PULSE 51; RESP 18; TEMP 36.6; O2SAT 95
[2020-11-04] MEDS: Octreotide 0.1 MG/ML ML SC (06:26)
[2020-11-04 07:42] VITALS: O2SAT 96
[2020-11-04 08:30] VITALS: BP 126/60; PULSE 74; RESP 14; TEMP 36.8; O2SAT 94
--- NOTE | 2020-11-04 09:18 | CASEMGMT ---
Social Work Note SW placed a call to Erum at [facility] and left message regarding referral. SW waiting for call back. Plan: [facility] pending acceptance and pre-cert April Workman NETWORKING ADMINISTRATOR, RESTAURANT AREA MANAGER
--- NOTE | 2020-11-04 11:01 | CASEMGMT ---
Social Work Note WILLIAM received message from Erum at [facility] stating [facility] has denied pt, not able to accept. Pt's Ana is present at [facility]. WILLIAM in to speak with pt and Ana. Ana asked to speak outside pt's room. WILLIAM updated Ana that [facility] has denied pt. WILLIAM informed Ana that if she still thinks pt needs SNF, then pt will need to go to a different SNF. Ana states she doesn't want pt to go to [facility]. WILLIAM informed Ana that there are other SNF that accept pt's insurance. Ana states she thought about [facility] but states with pt's language, that won't be good. WILLIAM also informed Ana that this worker doesn't think [facility] takes pt's [employer] either. Ana again asked for clarification on [employer]. WILLIAM provided clarification on Managed Medicare vs traditional Medicare. Ana states well if no one will take him, I will just take him home. Ana asked about Hospice services. WILLIAM educated Ana on Hospice services but informed Ana that Hospice order would need to come from physician. Ana asked about help in the home. WILLIAM educated Ana on HHC, private duty aides. Ana states she is agreeable to [facility]. WILLIAM informed Ana that with HHC, RN, PT/OT/ST, and even SW could be added through HHC. Ana agreeable to [facility] for RN, PT/OT/ST and SW. Ana states she will also reach out to [facility] in regards to aide services. [facility]. Ana states I just have concerns with him falling. WILLIAM informed Ana that pt could fall at a SNF and reinforced that per PT/OT yesterday pt mod independent/supervision for transfers/bed mobility and was able to ambulate 140ft supervision. WILLIAM informed Ana that if she takes pt's home and has questions/concerns she can reach out HHC RN or call pt's PCP or [facility] for assistance. Ana states understanding. WILLIAM provided much support to Ana throughout conversation. WILLIAM updated RN CM on plan for HHC now. April Workman VASCULAR NURSE, PREVENTIVE MEDICINE OFFICER
--- NOTE | 2020-11-04 11:06 | CASEMGMT ---
Addendum entered by Kathie Guzman 11/04/20 14:40: Pt screened with [facility] Palliative Care Screening Tool and pt met criteria. Pt [facility] dc today. [facility]. Referral not made due to pt being dc'd today. Original Note: Notified by Lauro THOMAS that pt wishes to take pt home with HHC. RN CM in to pt room. Pt awake lying in bed. Patient was provided a list of [facility] providers including quality and resource use data and consistent with the patient?s preferred geographic region, medical needs, and insurance network. Pt states he will leave this decision up to his . TC made to and read her the list as above. Patient's 's preferred provider is [facility] as first choice and [facility] as second choice. ARNAV Babb intake at [facility] to make referral.
--- NOTE | 2020-11-04 14:13 | PCM.DC ---
- Discharge Diagnoses Current Active Problems: Current Active and Chronic Problems (This Medical Record has been edited. Action required.) Liver cirrhosis (Acute) Liver cancer (Acute) Hepatorenal syndrome (Acute) You will use the following diet at home:: No restrictions, Other - avoid salt Your food should be the consistency of: Regular Your liquids should be the consistency of: Regular/Thin Discharge Activity: Return to Normal Activity Weight Bearing Status: Full weight bearing Allergies/Adverse Reactions: Allergies No Known Allergies Allergy (Verified 10/30/20 21:24) Medications to take at Discharge Cholecalciferol (VIT D3) [Vitamin D] 2,000 unit PO DAILY 10/31/20 Fluticasone Propionate [Flovent Diskus] 1 spray NARES BID PRN 10/31/20 Lanolin Alcohol/Mo/W.pet/[place] [Eucerin Creme] 1 applic TOPICAL PRN PRN 10/31/20 Omeprazole 40 mg PO DAILY 10/31/20 Propranolol HCl 40 mg PO BID 10/31/20 Sertraline HCl 50 mg PO DAILY 10/31/20 Triamcinolone 0.1% Cream [Kenalog] 1 applic TOPICAL BID PRN 10/31/20 Furosemide [Lasix] 20 mg PO DAILY tablet 11/04/20 Gabapentin 600 mg PO QHS PRN PRN #1 capsule 11/04/20 Lactulose 20 gm PO TID #32 oz 11/04/20 Nicotine [Nicoderm Cq] 7 mg TD DAILY #0 patch 11/04/20 Spironolactone [Aldactone] 50 mg PO DAILY #0 tablet 11/04/20 The following prescriptions were given: Gabapentin 600 mg PO QHS PRN PRN #1 capsule PRN Reason: Pain Score 1-10 Lactulose 20 gm PO TID #32 oz Primary Care Physician: Miguel Ángel Sandoval MD [Primary Care Provider] - Please follow up with your Primary Care Physician in: 1-2 weeks Test Results: Test results from this visit will be discussed in further detail at your follow-up appointment, if applicable. Please Follow Up With: [facility] next week
[2020-11-04 14:30] VITALS: BP 130/64; PULSE 72; RESP 14; TEMP 36.8; O2SAT 98
--- NOTE | 2020-11-05 12:40 | CASEMGMT ---
AJITH KOENIG Discharge Follow Up Phone Call: ZOHRA: 12 Strata: 3 Call Date: 11/05/20 Discharge Date: 11/04/20 Time of Call: 1235 Duration: 4 min Admitting Dx: acute hepatic encephalopathy AJITH KOENIG completed follow up phone call after recent hospitalization. Spoke with pt who states lastnight pt was grumpy and mean. States he did not want to do anything, not taking meds, eating and just wanted to go to bed. Pt slept all night. States pt was in better spirits this morning. Attempted to take meds with applesauce and pt threw up the meds. States pt is doing well moving around. She is questioning if pt is giving up. [facility] family is coming to see pt this weekend. She states she has not made a follow appt with pcp yet, but [facility]. She is waiting for a returned call. States she has not heard from yet. Pt has no further questions or concerns at this time. LIBERTY called [facility] and left message for intake to see when pt will be seen. Left vm.
--- NOTE | 2020-11-05 18:58 | PCM.DC.SUM ---
Discharge Date and Diagnosis - Problem List Patient Problems: Active and Suspected Problems (This Medical Record has been edited. Action required.) Liver cirrhosis (Acute) Liver cancer (Acute) Hepatorenal syndrome (Acute) Date of Admission: 10/30/20 Date of Discharge: 11/04/20 - Primary Discharge Diagnosis Acute Problems: Active Problems (This Medical Record has been edited. Action required.) #1 hepatic encephalopathy secondary to cirrhosis #2 generalized weakness-secondary to chronic liver disease and liver cancer #3 liver cancer #4 jaundice-secondary to chronic liver disease and liver cancer #5 elevated creatinine-possibly secondary to chronic kidney disease stage IIIb-etiology unclear #6 type 2 diabetes #7 chronic ascites-secondary to cirrhosis and chronic liver cancer #8 cirrhosis-etiology unclear #9 hyperlipidemia Hospital Course and Treatment Operations: None Procedures: None, Paracentesis Summary of Care Provided: The patient is a 75 year old M was seen in the emergency room at [facility] with a chief complaint of generalized weakness, patient had outpatient labs recently which showed an abnormal kidney function as well as elevated ammonia level. Patient was having increased trouble walking at home and had falls. Work-up in the emergency room revealed an unremarkable CBC, BUN was elevated to 51, creatinine was elevated at 2.58, bilirubin was elevated at 4.3, alkaline phosphatase was elevated at 320, AST was elevated at 110, and ammonia level was 80. Patient was admitted to [place] [id number] for hepatic encephalopathy and acute kidney injury, he was seen by PT and OT, and he underwent a paracentesis with removal of 4500 cc of fluid. Patient's family wanted the patient to go to an extended care facility but the jail the patient's family preferred would not take the patient. In addition, [facility] would not accept the patient on a transfer from the hospital. Patient's decided to take the patient home with home health care. On examination he appeared frail, he was in no acute distress. Vital signs as documented. Skin warm and dry and without overt rashes. Neck without JVD, neck was supple, trachea midline, thyroid was normal. Lungs clear bilaterally, normal air movement was noted. Heart exam notable for regular rhythm, normal sounds and absence of murmurs, rubs or gallops. Abdomen unremarkable and without evidence of organomegaly, masses, or abdominal aortic enlargement. Bowel sounds are present, abdomen was moderately distended and tympanic. Extremities nonedematous, no cyanosis was noted, no clubbing was noted. Neuro: Cranial nerves II through XII are grossly intact, no focal motor deficits were noted, sensation to light touch and pinprick intact, motor exam 5/5 throughout. Psych: Patient is alert and oriented x3, he does not appear anxious or depressed, he does not appear agitated. Patient was discharged home in stable condition on 11/04/2020 with home health care. Patient Problems: Active and Suspected Problems (This Medical Record has been edited. Action required.) Liver cirrhosis (Acute) Liver cancer (Acute) Hepatorenal syndrome (Acute) - Physical Exam Vitals/I&O's: Vital Signs Temp Pulse Resp BP Pulse Ox 98.3 F 72 14 130/64 H 98 11/04/20 14:30 11/04/20 14:30 11/04/20 14:30 11/04/20 14:30 11/04/20 14:30 Oxygen Flow Rate (L/min) 2 Oxygen Delivery Method [4] Room Air Oxygen Delivery Method [3] Room Air Oxygen Delivery Method [2] Room Air Oxygen Delivery Method [1 ( Room Air Initial Baseline)] Oxygen Delivery Method Room Air Weight: 106.7 kg Body Mass Index (BMI) 33.7 Intake and Output for Last 24 Hours 11/03/20 11/04/20 11/05/20 23:59 23:59 23:59 Intake Total 400 / 400 400 / 400 Balance 400 / 400 400 / 400 Discharge Activity: Return to Normal Activity Weight Bearing Status: Full weight bearing Home Medications: Medications to take at Discharge Cholecalciferol (VIT D3) [Vitamin D3] 2,000 unit PO DAILY 10/31/20 Fluticasone Propionate [Flovent Diskus] 1 spray NARES BID PRN 10/31/20 Lanolin Alcohol/Mo/W.pet/[place] [Eucerin Creme] 1 applic TOPICAL PRN PRN 10/31/20 Omeprazole 40 mg PO DAILY 10/31/20 Propranolol HCl 40 mg PO BID 10/31/20 Sertraline HCl 50 mg PO DAILY 10/31/20 Triamcinolone 0.1% Cream [Kenalog] 1 applic TOPICAL BID PRN 10/31/20 Furosemide [Lasix] 20 mg PO DAILY tablet 11/04/20 Gabapentin 600 mg PO QHS PRN PRN #1 capsule 11/04/20 Lactulose 20 gm PO TID #32 oz 11/04/20 Nicotine [Nicoderm Cq] 7 mg TD DAILY #0 patch 11/04/20 Spironolactone [Aldactone] 50 mg PO DAILY #0 tablet 11/04/20 Following Prescriptions Were Given to Patient: Gabapentin 600 mg PO QHS PRN PRN #1 capsule PRN Reason: Pain Score 1-10 Lactulose 20 gm PO TID #32 oz Primary Care Physician: Miguel Ángel Sandoval MD [Primary Care Provider] - Please follow up with your Primary Care Physician in: 1-2 weeks [facility]position[facility] with [facility] Minutes spent on discharge:: 32 Patient Condition:: Stable Medical Necessity - Tobacco Use Smoking Status: Current some day smoker Tobacco Use: Cigarettes Meaningful Use Info Meaningful Use Diagnoses (Choose all that apply): None applicable Inpatient E&M: 01449 Disch Hosp
== END 2020-11-04 16:21 | disposition home health service (06) | DRG 441 ==
LOC: ED 23:11 → MS3 23:17
PROVIDERS: Admitting Provider Hospitalist; Emergency Provider Emergency Medicine; PCP Family Medicine; Visit Provider Internal Medicine
DX: K72.00 Acute and subacute hepatic failure without coma (principal); K76.7 Hepatorenal syndrome; C22.8 Malignant neoplasm of liver, primary, unspecified as to type; R18.8 Other ascites; K74.60 Unspecified cirrhosis of liver; R53.1 Weakness; E11.22 Type 2 diabetes mellitus with diabetic chronic kidney disease; N18.32 Chronic kidney disease, stage 3b; E78.5 Hyperlipidemia, unspecified; R29.6 Repeated falls; F17.210 Nicotine dependence, cigarettes, uncomplicated; R13.10 Dysphagia, unspecified
CPT/HCPCS: 36415; 49083; 70450; 71045; 80048; 80053; 81002; 82077; 82140; 84484; 85025; 85610; 85730; 87426; 89050; 92507; 92526; 92610; 93005; 94762; 97110; 97116; 97162; 97166; 97530; 97535; 97802; 99285; P9047; A4216; J2354